=== PATIENT | female | born 1995 | race Caucasian/White ===

== ENCOUNTER 2019-10-29 18:40 | Emergency (ER) | payer MEDICAID ==
[~2019-10-29] VITALS: Ht 172.7 cm; Wt 80.5 kg
[~2019-10-29 18:40] MED LIST: DOCU-131 PO; IBUP-1222 PO; NITR100C56 PO; NITR100C6 PO; OXYC-302 PO; PNV1TABL11 PO
[2019-10-29 19:51] VITALS: BP 109/69
[2019-10-29] MEDS ORDERED: DEXAMETHASONE 4 MG TABLET PO ONE (20:30)
[2019-10-29] MEDS ORDERED: KETOROLAC 30 MG/1 ML IVPush ONE (20:30)
[2019-10-29] MEDS ORDERED: KETOROLAC 30 MG/1 ML ONE (20:34)
[2019-10-29] MEDS ORDERED: DEXAMETHASONE 4 MG TABLET ONE (20:34)
== END 2019-10-29 21:10 | disposition home or self-care (01) ==
LOC: ED 21:00
DX: J20.8 Acute bronchitis due to other specified organisms (principal); M94.0 Chondrocostal junction syndrome [Tietze]; M79.10 Myalgia, unspecified site; Z72.89 Other problems related to lifestyle
CPT/HCPCS: 71046; 93005; 96374; 99283; J1885